=== PATIENT | female | born 1990 | race Caucasian/White ===

== ENCOUNTER 2018-04-13 17:50 | Emergency (ER) | payer BC ==
[2018-04-13 18:15] VITALS: BP 131/87
--- NOTE | 2018-04-13 18:31 | ED ---
Throat Pain/Nasal Congestion - HPI Summary HPI Summary: 27 yr old female with two weeks of sinus pressure, post nasal drip, coughing. Symptoms are moderate. Worse with tapping forehead. Denies fever, chills. No NV. No other complaints. - History of Current Complaint Chief Complaint: UCGeneralIllness Time Seen by Provider: 04/13/18 18:17 - Allergies/Home Medications Allergies/Adverse Reactions: Allergies Allergy/AdvReac Type Severity Reaction Status Date / Time No Known Allergies Allergy Verified 04/13/18 18:14 Home Medications: Home Medications buPROPion HCl [Bupropion HCl Sr] 150 mg PO BID 04/13/18 [History Confirmed 04/13] PMH/Surg Hx/FS Hx/Imm Hx Infectious Disease History: Yes Infectious Disease History: Denies: Traveled Outside the [place] in Last 30 Days - Social History Occupation: Employed Full-time Alcohol Use: Occasionally Substance Use Type: Reports: None Smoking Status (MU): Current Every Day Smoker Type: Cigarettes Amount Used/How Often: 1/2 pack every 3 days Review of Systems Constitutional: Negative Positive: Nasal Discharge, Other - sinus pressure Positive: Cough All Other Systems Reviewed And Are Negative: Yes Physical Exam Triage Information Reviewed: Yes Vital Signs On Initial Exam: Initial Vitals Temp Pulse Resp BP Pulse Ox 97.4 F 86 19 131/87 100 04/13/18 18:12 04/13/18 18:12 04/13/18 18:12 04/13/18 18:12 04/13/18 18:12 Vital Signs Reviewed: Yes Appearance: Positive: Well-Appearing, No Pain Distress Skin: Positive: Warm, Skin Color Reflects Adequate Perfusion Head/Face: Positive: Normal Head/Face Inspection Eyes: Positive: EOMI, NHUNG ENT: Positive: Pharynx normal, Nasal congestion, Nasal drainage, TMs normal, Sinus tenderness Neck: Positive: Supple, Nontender Respiratory/Lung Sounds: Positive: Clear to Auscultation, Breath Sounds Present Cardiovascular: Positive: RRR. Negative: Murmur Abdomen Description: Positive: Nontender Musculoskeletal: Positive: Strength/ROM Intact Neurological: Positive: Sensory/Motor Intact, Alert, Oriented to Person Place, Time, CN Intact II-III, Normal Gait Psychiatric: Positive: Normal Diagnostics - Vital Signs Vital Signs Temp Pulse Resp BP Pulse Ox 04/13/18 18:12 97.4 F 86 19 131/87 100 - Laboratory Lab Statement: Any lab studies that have been ordered have been reviewed, and results considered in the medical decision making process. EENT Course/Dx - Course Course Of Treatment: 27 yr old with sinusitis. Rx Augmentin - Diagnoses Provider Diagnoses: Sinusitis Discharge - Sign-Out/Discharge Documenting (check all that apply): Patient Departure All imaging exams completed and their final reports reviewed: No Studies - Discharge Plan Condition: Good Disposition: HOME Prescriptions: Amoxicillin/Clavulanate TAB* [Augmentin TAB 875*] 875 mg PO BID #20 tab Patient Education Materials: Sinusitis (ED) Referrals: Kristine Eagle PA [Primary Care Provider] - 2 Days - Billing Disposition and Condition Condition: GOOD Disposition: Home
== END 2018-04-13 18:38 | disposition home or self-care (01) ==
LOC: UCCORT 17:50
DX: J32.9 Chronic sinusitis, unspecified (principal); F17.210 Nicotine dependence, cigarettes, uncomplicated
CPT/HCPCS: 99202; G0463

== ENCOUNTER 2019-03-12 21:16 | Emergency (ER) | payer BC ==
[2019-03-12 21:21] VITALS: BP 148/93
--- NOTE | 2019-03-12 21:29 | UC ---
Respiratory Complaint HPI - HPI Summary HPI Summary: Patient is a 28yo female presenting with nasal congestion and dry cough x 4 days. Patient notes sore throat from coughing. Notes wheezing in the morning. Denies n/v. Notes chills 2 days ago. Denies fever. Denies current sob/wheezing. Current every day smoker 1/2ppd. - History of Current Complaint Chief Complaint: UCRespiratory Stated Complaint: COUGH, CONGESTION Hx Obtained From: Patient Hx Last Menstrual Period: IUD Onset/Duration: Gradual Onset, Lasting Days Severity Currently: Mild Pain Intensity: 3 Pain Scale Used: 0-10 Numeric - Allergies/Home Medications Allergies/Adverse Reactions: Allergies Allergy/AdvReac Type Severity Reaction Status Date / Time No Known Allergies Allergy Verified 03/12/19 21:21 Home Medications: Home Medications D-Methorphan/PE/Acetaminophen [Vicks Dayquil Liquicaps] 2 each PO PRN 03/12/19 [ History] Menthol [Vicks Vapodrops] PRN 03/12/19 [History] guaiFENesin ER TAB [Mucinex*] 600 mg PO PRN 03/12/19 [History] PMH/Surg Hx/FS Hx/Imm Hx - Surgical History Surgical History: None - Family History Known Family History: Positive: Non-Contributory - Social History Alcohol Use: Occasionally Substance Use Type: None Smoking Status (MU): Current Every Day Smoker Type: Cigarettes Amount Used/How Often: 1/2 ppd Review of Systems All Other Systems Reviewed And Are Negative: Yes Constitutional: Positive: Chills. Negative: Fever, Fatigue ENT: Positive: Sore Throat - from cough, Sinus Congestion. Negative: Ear Ache, Nasal Discharge Respiratory: Positive: Shortness Of Breath - sob/wheezing in AM, Cough - nonproductive Cardiovascular: Positive: Negative Gastrointestinal: Positive: Negative. Negative: Vomiting, Nausea Musculoskeletal: Positive: Negative Neurological: Positive: Negative Physical Exam Triage Information Reviewed: Yes Appearance: Well-Appearing, No Pain Distress, Well-Nourished Vital Signs: Initial Vital Signs Temp 97.7 F 03/12/19 21:18 Pulse 115 03/12/19 21:18 Resp 16 03/12/19 21:18 BP 148/93 03/12/19 21:18 Pulse Ox 97 03/12/19 21:18 Vital Signs Reviewed: Yes Eyes: Positive: Conjunctiva Clear ENT: Positive: Hearing grossly normal, Pharyngeal erythema, Nasal congestion, TMs normal, Uvula midline. Negative: Nasal drainage, Tonsillar swelling, Tonsillar exudate Neck exam: Normal Neck: Positive: Supple, Nontender, No Lymphadenopathy Respiratory Exam: Normal Respiratory: Positive: Lungs clear, Normal breath sounds, No respiratory distress, No accessory muscle use. Negative: Crackles, Rhonchi, Stridor, Wheezing Cardiovascular Exam: Normal Cardiovascular: Positive: RRR, No Murmur. Negative: Tachycardia Neurological: Positive: Alert Psychological: Positive: Age Appropriate Behavior Skin Exam: Normal Respiratory Course/Dx - Course Course Of Treatment: Educated patient on viral bronchitis and treated with tessalon perles and albuterol inhaler for symptom relief. Educated on s/s of worsening illness and instructed to go to ED if any red flags occur. Instructed to refrain from smoking while symptoms present. Patient states she has appt with pcp on 03/20. I instructed patient to follow up with that appt if symptoms continue to persist. Patient received inhaler and first dose of tesslon perles here tonight. Patient afebrile and in no respiratory distress. Patient voiced understanding and agreed with treatment plan. - Differential Dx/Diagnosis Differential Diagnosis/HQI/PQRI: Asthma, Bronchitis Provider Diagnosis: Viral URI with cough, Acute bronchitis with bronchospasm Discharge ED - Sign-Out/Discharge Documenting (check all that apply): Patient Departure All imaging exams completed and their final reports reviewed: No Studies - Discharge Plan Condition: Stable Disposition: HOME Prescriptions: Benzonatate CAP* [Tessalon 100 MG CAP*] 100 mg PO TID PRN #15 cap PRN Reason: Cough Patient Education Materials: Upper Respiratory Infection (ED), Acute Bronchitis (ED) Referrals: Marshall Davis MD [Primary Care Provider] - If Needed Additional Instructions: As discussed, your symptoms are most likely caused by a virus and should resolve without treatment. Continue use the inhaler as needed for your shortness of breath/wheezing. You may take the tesslon perles as prescribed for coughing relief. You may continue to take over the counter cough and cold medications for your cold symptoms. You may take ibuprofen as directed for pain relief. Get plenty of rest and fluids. Follow up with your primary care provider as scheduled on 03/20/19 if symptoms persist. Go to the emergency room with any new or worsening symptoms. - Billing Disposition and Condition Condition: STABLE Disposition: Home
[2019-03-12] MEDS ORDERED: Albuterol HFA INHALER* 8 gm MDI INH ONE (21:38)
[2019-03-12] MEDS ORDERED: Benzonatate CAP* 100 MG PO ONE (21:40)
== END 2019-03-12 21:53 | disposition home or self-care (01) ==
LOC: UCEAST 21:16
DX: J06.9 Acute upper respiratory infection, unspecified (principal); R05 Cough; J20.9 Acute bronchitis, unspecified; F17.210 Nicotine dependence, cigarettes, uncomplicated
CPT/HCPCS: 99212; A9270-GY; G0463